=== PATIENT | male | born 1985 | race African-American/Black ===

== ENCOUNTER 2017-08-16 16:07 | Emergency (ER) | payer OTHER ==
--- NOTE | 2017-08-16 17:21 | ED ---
Lower Extremity - HPI Summary HPI Summary: 32-year-old male presents with left knee pain today. He states he is playing basketball and turned his left knee. States his pain is over the medial aspect and the posterior aspect of his knee. He states that it initially felt little unstable but is feeling better now. He denies any pain while at rest; it hurts when he walks on it. He states that he hasn't taken anything for his pain. He has full range of motion of the knee. There is no edema present. He denies any previous injury to the area. He denies any other injury. He states he did not twist his ankle. pain currently is 1 out or 10. - History of Current Complaint Chief Complaint: EDExtremityLower Stated Complaint: LT KNEE INJURY Time Seen by Provider: 08/16/17 16:33 Pain Intensity: 0 - Allergies/Home Medications Allergies/Adverse Reactions: Allergies Allergy/AdvReac Type Severity Reaction Status Date / Time No Known Allergies Allergy Verified 08/16/17 16:18 PMH/Surg Hx/FS Hx/Imm Hx Endocrine/Hematology History: Denies: Hx Anticoagulant Therapy Cardiovascular History: Denies: Hx Hypertension Infectious Disease History: No Infectious Disease History: Denies: Traveled Outside the [place] in Last 30 Days - Family History Known Family History: Positive: Hypertension - Social History Alcohol Use: Rare Substance Use Type: Reports: None Smoking Status (MU): Never Smoked Tobacco Review of Systems Negative: Fever Negative: Chest Pain Negative: Shortness Of Breath Positive: Myalgia - left knee pain All Other Systems Reviewed And Are Negative: Yes Physical Exam Triage Information Reviewed: Yes Vital Signs On Initial Exam: Initial Vitals Temp Pulse Resp BP Pulse Ox 98.3 F 65 18 118/61 100 08/16/17 16:16 08/16/17 16:16 08/16/17 16:16 08/16/17 16:16 08/16/17 16:16 Vital Signs Reviewed: Yes Appearance: Positive: Well-Appearing Skin: Positive: Warm, Dry Head/Face: Positive: Normal Head/Face Inspection Eyes: Positive: Normal, Conjunctiva Clear Respiratory/Lung Sounds: Positive: Clear to Auscultation, Breath Sounds Present Cardiovascular: Positive: Normal, RRR Musculoskeletal: Positive: Strength/ROM Intact - left knee, Other - good pulses , nontender left knee, neg anterior drawer, neg kartik, Neurological: Positive: Normal Psychiatric: Positive: Normal Diagnostics - Vital Signs Vital Signs Temp Pulse Resp BP Pulse Ox 08/16/17 16:16 98.3 F 65 18 118/61 100 - Laboratory Lab Statement: Any lab studies that have been ordered have been reviewed, and results considered in the medical decision making process. - Radiology knee Xray Interpretation: No Acute Changes Radiology Interpretation Completed By: Radiologist Lower Extremity Course/Dx - Course Course Of Treatment: 32-year-old male presents with left knee pain today. He states he is playing basketball and turned his left knee. States his pain is over the medial aspect and the posterior aspect of his knee. He states that it initially felt little unstable but is feeling better now. He denies any pain while at rest; it hurts when he walks on it. He states that he hasn't taken anything for his pain. He has full range of motion of the knee. There is no edema present. He denies any previous injury to the area. He denies any other injury. He states he did not twist his ankle. pain currently is 1 out of 10. on exam nontender knee, full ROM of knee. neg anterior drawer and kartik. able to ambulate with some pain. xray normal. with mechanism could be mensical injury but seem more like a sprain. will have follow up with ortho in [place] if no improvement. will give knee immobolizer. patient understand and agrees with plan. - Diagnoses Differential Diagnosis/HQI/PQRI: Positive: Fracture (Closed), Sprain, Strain Provider Diagnoses: Left knee injury Discharge - Discharge Plan Condition: Good Disposition: HOME Patient Education Materials: Knee Pain (ED) Referrals: No Primary Care Phys,NOPCP [Primary Care Provider] - Additional Instructions: Take Tylenol or ibuprofen every 6 hours as needed for pain Apply ice, rest, elevate Follow up with ortho if no improvement in a week Return to ED if develop any new or worsening symptoms
--- NOTE | 2017-08-16 17:22 | RAD ---
Indication: Left knee pain. 4 views of left knee are reviewed. There is no fracture or dislocation. No joint effusion is noted. IMPRESSION: Unremarkable left knee.
[2017-08-16 17:40] VITALS: BP 130/75
== END 2017-08-16 17:39 | disposition home or self-care (01) ==
LOC: ED 16:07
DX: S89.91XA Unspecified injury of right lower leg, initial encounter (principal); X50.9XXA Other and unspecified overexertion or strenuous movements or postures, initial encounter; Y93.67 Activity, basketball; Y92.9 Unspecified place or not applicable
CPT/HCPCS: 99282